=== PATIENT | male | born 1980 | race Caucasian/White ===

== ENCOUNTER 2019-10-05 11:21 | Outpatient (CLI) | payer OTHER, SELFPAY ==
[2019-10-05 16:52] LABS: Calculated LDL 104 mg/dL; Cholesterol 208 mg/dL (<200); Glucose 92 mg/dL (74-106); HDL Cholesterol 75 mg/dL (40-60); Triglyceride 147 mg/dL (<150)
== END 2019-10-05 11:41 ==
PROVIDERS: PCP Family Medicine; Visit Provider Family Medicine
DX: Z13.1 Encounter for screening for diabetes mellitus (principal); Z13.220 Encounter for screening for lipoid disorders
CPT/HCPCS: 36415; 80061; 82947

== ENCOUNTER 2023-02-23 18:35 | Outpatient (CLI) | payer OTHER, SELFPAY ==
--- NOTE | 2023-02-23 | DI.RAD_ITS ---
Exam(s) XR KNEE RT 3V AP,LAT,SALEEM EXAM: XR KNEE RT 3V AP,LAT,SALEEM CLINICAL HISTORY: TRAUMA 1 MONTH AGO,PREPATELLAR BURSITIS, M70.41. TECHNIQUE: 2D digital imaging was performed. COMPARISON: No exams were available for comparison FINDINGS: 3 views Prominent prepatellar swelling noted. No radiopaque foreign body nor calcification at this level not ed. No patellar fracture. No knee joint effusion. No osseous findings in the knee and no degenerative changes nor osteochondra l defects IMPRESSION: Prepatellar soft tissue swelling. No osseous findings. DATA REPOSITORY: RADIATION DOSE DELIVERED:
== END 2023-02-23 18:55 ==
LOC: DI 18:35
PROVIDERS: PCP Family Medicine; Visit Provider Family Medicine
DX: M70.41 Prepatellar bursitis, right knee (principal)
CPT/HCPCS: 73562

== ENCOUNTER 2023-08-27 20:08 | Outpatient (REF) | payer OTHER, SELFPAY ==
[2023-08-27 15:46] LABS: Absolute Basophil Count 0.03 10^3/uL (0.0-0.2); Absolute Eosinophil Count 0.24 10^3/uL (0.0-0.7); Absolute Lymphocyte Count 1.96 10^3/uL (1.2-3.4); Absolute Monocyte Count 0.42 10^3/uL (0.1-0.8); Basophils % 0.6; Eosinophils % 4.4; HCT 42.2 % (40.0-50.0); HGB 13.6 g/dL (13.5-17.5); MCH 26.6 pg (27.0-33.0); MCHC 32.2 % (32.0-36.0); MCV 83 fL (80-95); MPV 9.2 fL (8.0-11.0); Monocytes % 7.7; Neutrophils % 51.3; Platelet Count 296 10^3/uL (130-400); RBC 5.11 10^6/uL (4.36-5.78); RDW 13.9 % (11.8-14.1); WBC 5.45 10^3/uL (4.4-10.8)
[2023-08-27 15:53] LABS: ESR 4 mm/hr (0-15)
[2023-08-27 16:10] LABS: ALT 21 U/L (16-63); AST 14 U/L (15-37); Albumin 4.3 g/dL (3.4-5.0); Alkaline Phosphatase 50 U/L (46-116); Anion Gap 5.3 mmol/L (3-11); BUN 19 mg/dL (7-18); Bilirubin, Total 0.4 mg/dL (0.2-1.0); CO2 29.7 mmol/L (21.0-32.0); Calcium 9.5 mg/dL (8.5-10.1); Chloride 103 mmol/L (98-107); Cholesterol 250 mg/dL (<200); Estimated GFR 95.18 (mL/min/1.73m2); Glucose 99 mg/dL (74-106); Potassium 4.6 mmol/L (3.5-5.1); Sodium 138 mmol/L (136-145); Total Protein 7.9 g/dL (6.4-8.2); Triglyceride 58 mg/dL (<150)
[2023-08-27 16:24] LABS: Calculated LDL 153 mg/dL (<100); HDL Cholesterol 86 mg/dL (40-60)
[2023-08-28 10:00] LABS: HIV-1/2 Ag & Ab Screen Negative (Negative)
[2023-08-30 09:37] LABS: Hepatitis B Surface Ag Negative (Negative)
[2023-08-30 10:20] LABS: Hepatitis C Ab w Rflx HCV PCR Negative (Negative)
== END 2023-08-27 20:09 | disposition home or self-care (01) ==
LOC: NCHCN 20:08
PROVIDERS: PCP Family Medicine; Visit Provider Family Medicine
DX: Z00.00 Encounter for general adult medical examination without abnormal findings (principal)
CPT/HCPCS: 80053; 80061; 85652; 86803; 87340; 87389; 85025

== ENCOUNTER 2024-05-10 12:45 | Outpatient (CLI) | payer OTHER, SELFPAY ==
--- NOTE | 2024-05-10 09:15 | DI.RAD_ITS ---
Exam(s) XR SHOULDER RT COMPLETE 2+V EXAM: XR SHOULDER RT COMPLETE 2+V CLINICAL HISTORY: RIGHT SHOULDER PAIN. TECHNIQUE: 2D digital imaging was performed. COMPARISON: No exams were available for comparison FINDINGS: Two views. No evidence of fracture or dislocation nor abnormal soft tissue calcifications. No abnormal soft tis toyin calcifications in the subacromial space. Glenohumeral joint appears unremarkable. Mild degenera tive changes noted in the AC joint. There is a small degenerative subarticular figure cyst in the greater tuberosity on the lateral aspec t of the humeral head. IMPRESSION: Mild degenerative changes in the AC joint. Glenohumeral joint appears unremarkable. No other osseou s findings. DATA REPOSITORY: RADIATION DOSE DELIVERED:
== END 2024-05-10 12:46 | disposition home or self-care (01) ==
LOC: DIORS 12:45
PROVIDERS: PCP Student in an Organized Health Care Education/Training Program; Visit Provider Student in an Organized Health Care Education/Training Program
DX: M19.011 Primary osteoarthritis, right shoulder
CPT/HCPCS: 73030

== ENCOUNTER 2024-06-05 02:15 | Outpatient (CLI) | payer OTHER, SELFPAY ==
--- NOTE | 2024-06-05 08:00 | DI.MRI_ITS ---
Exam(s) MR UPPER JOINT RT WO EXAM: MR UPPER JOINT RT WO CLINICAL HISTORY: R SHOULDER PAIN, RT ROTATOR CUFF TEAR, M75.101 TECHNIQUE: Multiplanar multisequence MRI of the shoulder was performed. COMPARISON: CR XR SHOULDER RT COMPLETE 2+V from 05/10/2024 FINDINGS: MARROW:There is prominent bone contusion signal in the posterolateral aspect of the humeral head as w ell as in the greater tuberosity. On the T1 images there are a few subtle microtrabecular fracture l carmella in the greater tuberosity. GLENOHUMERAL JOINT: There is no significant subluxation of the humeral head in the osseous glenoid. N o prominent joint effusion nor obvious loose intra-articular bodies. Small amount of increased fluid is noted in the inferior recess without an obvious tear of the inferior glenohumeral ligament. No c hondral defects. No osteophytes. There are no degenerative cysts in the osseous glenoid. Few small cysts are noted in the region of edema in the lateral aspect of the humeral head. ROTATOR CUFF MECHANISM: AC JOINT/ACROMIUM: There are moderate degenerative changes in the AC joint. There is no diastasis of the AC joint evident. Small osteophyte on the undersurface of the clavicle at this level is causing some impingement on the supraspinatus.. There is no evidence of os acromiale. Supraspinatus: There is thickening and signal abnormality seen within the supraspinatus tendon with e vidence of tendinitis/tendinosis. There also appears to be a small area of partial-thickness tearing on the articular surface side at the level of the conjoined tendon insertion region.. There does no t appear to be a full-thickness tear. There is no retraction of the musculotendinous junction. Ther e is no muscle atrophy. Infraspinatus: Increased signal at the conjoined tendon level as described above. No thickness tear. No retraction. No atrophy. Teres Minor: Intact. No evidence of tear nor muscle atrophy. Subscapularis/anterior cuff: Intact. No abnormal signal at the level of the multipennate insertional fibers. No significant tear nor atrophy. No abnormal intraosseous signal seen in the lesser tuberos ity nor within the coracoid process. BICEPS TENDON: Exhibits normal position within the intertubercular groove. No evidence of tear. There is mild fluid in the biceps tendon sheath within the intertubercular groove. LABRUM: There is mild increased signal seen within the superior labrum posterior to the biceps insert ion site. There is no true invagination of fluid evident between the osseous glenoid and labrum at t his level. There is no obvious tear of the anterior labrum. Posterior labrum appears intact. Infer ior labrum appears intact. The inferior glenohumeral ligament appears intact. There is a small amou nt of fluid in the inferior recess noted. No loose body at this level. QUADRILATERAL SPACE: No evidence of mass in the region of the axillary nerve and dorsal circumflex hu meral vessels. Visualized triceps muscle at this level appears unremarkable. IMPRESSION: 1. There is bone edema-bone contusion signal in the lateral aspect of the humeral head and greater tu berosity. There are subtle T1 visible microtrabecular fracture lines evident at the level of the gre ater tuberosity (not visible on plain films). 2. There is thickening and abnormal signal within the supraspinatus and conjoined tendon aspect of th e infraspinatus with articular side partial thickness tearing of the rotator cuff mechanism at this l evel. There does not appear to be a true full-thickness tear. Teres minor as well as the anterior c uff-subscapularis appear intact. 3. Some increased signal noted in the superior labrum but doubtful for true SLAP tear. No distinct l abral tears identified and no evidence of paralabral cysts. 4. Mild fluid is seen around the biceps tendon within the tendon sheath within the intertubercular g roove. There is no obvious tear nor displacement of the biceps tendon. 5. Small amount of increased glenohumeral joint fluid. No large joint effusion nor loose intra-johnny cular bodies evident. There is also some degenerative change in the AC joint. There is no AC joint separation. DATA REPOSITORY:
== END 2024-06-05 02:35 ==
LOC: DI 02:15
PROVIDERS: PCP Student in an Organized Health Care Education/Training Program; Visit Provider Student in an Organized Health Care Education/Training Program
DX: M75.111 Incomplete rotator cuff tear or rupture of right shoulder, not specified as traumatic (principal)
CPT/HCPCS: 73221

== ENCOUNTER 2024-11-23 01:14 | Outpatient (CLI) | payer OTHER, SELFPAY ==
--- NOTE | 2024-11-23 | DI.MRI_ITS ---
Exam(s) MR UPPER JOINT RT WO EXAM: MR UPPER JOINT RT WO CLINICAL HISTORY: R SHOULDER PAIN,TENDINITIS BICEPS BRACHI,RT ROTATOR CUFF TEAR,M75.101. TECHNIQUE: Multiplanar multisequence MRI was performed. COMPARISON: CR XR SHOULDER RT COMPLETE 2+V from 05/10/2024 MR MR UPPER JOINT RT WO from 06/05/2024 FINDINGS: BONES: There is no fracture or contusion pattern. There is marrow edema seen in the greater tuberosit y. In addition subchondral cysts are also present. JOINTS: There are mild degenerative changes seen at the acromioclavicular joint. The glenohumeral jose d int is normal. TENDONS: Supraspinatus: There is tendinosis of the supraspinatus tendon. There is a small amount of fluid see n along the articular surface of the supraspinatus tendon at its insertion site which may represent a partial tear. Infraspinatus: Unremarkable. Subscapularis: There is tendinosis of the subscapularis tendon. Teres Minor: Unremarkable. Biceps and [place]: Biceps tendon shows normal signal and size. MUSCLES: Unremarkable. GLENOID LABRUM: Unremarkable on this noncontrast examination. SOFT TISSUES: Unremarkable. LIGAMENTS: Unremarkable. OTHER: Subacromial and subdeltoid bursae are unremarkable. IMPRESSION: 1. Tendinosis of the supraspinatus and subscapularis tendons. 2. Small amount of fluid seen along the articular surface of the supraspinatus tendon at its insertio n site which may represent a partial tear. 3. Prominent arthrosis of the greater tuberosity. 4. The biceps tendon shows normal signal and size. 5. Mild degenerative changes seen at the acromioclavicular joint. DATA REPOSITORY:
== END 2024-11-23 01:34 ==
LOC: DI 01:14
PROVIDERS: PCP Student in an Organized Health Care Education/Training Program; Visit Provider Student in an Organized Health Care Education/Training Program
DX: M75.21 Bicipital tendinitis, right shoulder (principal); M75.101 Unspecified rotator cuff tear or rupture of right shoulder, not specified as traumatic
CPT/HCPCS: 73221

== ENCOUNTER 2024-11-29 15:54 | Outpatient (CLI) | payer OTHER, SELFPAY ==
--- NOTE | 2024-11-29 08:30 | DI.RAD_ITS ---
Exam(s) XR LUMBAR SPINE AP, LAT EXAM: XR LUMBAR SPINE AP, LAT CLINICAL HISTORY: LOW BACK PAIN. TECHNIQUE: 2D digital imaging was performed. Five views. COMPARISON: No exams were available for comparison FINDINGS: BONES: No fracture or destructive lesion. Vertebral body heights are maintained. No facet hypertro phy identified . DISKS: Intervertebral disc spaces are maintained. ALIGNMENT: Lumbar spinal alignment is within normal limits. SOFT TISSUE: Normal. IMPRESSION: Unremarkable radiographs of the lumbar spine. DATA REPOSITORY: RADIATION DOSE DELIVERED:
== END 2024-11-29 15:55 | disposition home or self-care (01) ==
LOC: DIORS 15:54
PROVIDERS: PCP Student in an Organized Health Care Education/Training Program; Visit Provider Student in an Organized Health Care Education/Training Program
DX: M51.16 Intervertebral disc disorders with radiculopathy, lumbar region (principal)
CPT/HCPCS: 72100

== ENCOUNTER 2025-01-15 12:24 | Outpatient (CLI) | payer OTHER, SELFPAY ==
--- NOTE | 2025-01-15 | DI.MRI_ITS ---
Exam(s) MR LUMBAR SPINE WO EXAM: MR LUMBAR SPINE WO CLINICAL HISTORY: LUMBAR RADICULOPATHY, M54.16. TECHNIQUE: Multiplanar multisequence MRI of the Lumbar spine was performed. COMPARISON: CR XR LUMBAR SPINE AP, LAT from 11/29/2024 FINDINGS: Conus medullaris is at normal level. There is no evidence of conus mass nor subjacent clumping of in trathecal nerve roots to suggest arachnoiditis. The distal thecal sac appears unremarkable.There is no evidence of [place] intrasacral cysts nor other significant findings within the sacral canal Bones:There are no fractures nor ominous osseous lesions in the lumbar vertebral bodies and visualize d sacrum. With respect to the individual levels... T12-L1: Unremarkable L1-2: Normal disc height and signal. No disc herniation nor central canal stenosis.No foraminal steno sis L2-3: Normal disc height. No disc herniation nor central canal stenosis.No foraminal stenosis.No face t arthropathy. L3-4: Normal disc height. No disc herniation or central canal stenosis.No foraminal stenosis.No face t arthropathy. L4-5: Normal disc height and signal. Mild posterior annular bulging. On the left side there is mild asymmetric annular bulging in the floor of the exiting left neural foramen. Mild left-sided foramin al stenosis. There is no foraminal stenosis on the opposite-right side. Facet joints appear unremar kable at this level L5-S1: Normal disc height and signal. No disc herniation or central canal stenosis. No significant foraminal stenosis. No facet arthropathy evident. Soft tissues: paraspinal soft tissues appear unremarkable. IMPRESSION: 1. Mild findings at L4-5 level with mild left-sided foraminal stenosis as described above. 2. No other findings on this MRI scan of the lumbosacral spinal column. DATA REPOSITORY:
== END 2025-01-15 12:44 ==
LOC: DI 12:24
PROVIDERS: PCP Student in an Organized Health Care Education/Training Program; Visit Provider Student in an Organized Health Care Education/Training Program
DX: M48.062 Spinal stenosis, lumbar region with neurogenic claudication (principal)
CPT/HCPCS: 72148

== ENCOUNTER 2025-08-14 13:39 | Outpatient (REF) | payer OTHER, SELFPAY ==
[2025-08-14 16:50] LABS: ALT 13 U/L (10-49); AST 20 U/L (<34); Albumin 4.7 g/dL (3.2-5.0); Alkaline Phosphatase 49 U/L (46-116); Anion Gap 7 mmol/L (3-11); BUN 16 mg/dL (9-23); Bilirubin, Total 0.50 mg/dL (0.2-1.2); CO2 29.0 mmol/L (20.0-31.0); Calcium 9.2 mg/dL (8.3-10.6); Chloride 103 mmol/L (98-107); Glucose 95 mg/dL (74-106); Potassium 4.2 mmol/L (3.5-5.1); Sodium 139 mmol/L (136-145); Total Protein 7.7 g/dL (5.7-8.2)
== END 2025-08-14 13:40 | disposition home or self-care (01) ==
LOC: NCHCN 13:39
PROVIDERS: PCP Student in an Organized Health Care Education/Training Program; Visit Provider Student in an Organized Health Care Education/Training Program
DX: B35.1 Tinea unguium (principal)
CPT/HCPCS: 80053